=== PATIENT | female | born 1995 | race African-American/Black ===

== ENCOUNTER 2023-05-24 11:52 | Emergency (ER) | payer MEDICAID ==
[~2023-05-24] VITALS: Ht 172.7 cm; Wt 104.0 kg
[2023-05-24 11:58] VITALS: O2SAT 100
[2023-05-24] MEDS: IBUPROFEN 600MG TABLET PO ONE (12:50)
[2023-05-24] MEDS ORDERED: IBUP-2029 MT (12:58)
[2023-05-24 13:37] VITALS: BP 140/99; PULSE 78; RESP 20; TEMP 98.1
== END 2023-05-24 13:40 | disposition home or self-care (01) ==
LOC: ER 12:30
DX: S93.491A Sprain of other ligament of right ankle, initial encounter (principal); X58.XXXA Exposure to other specified factors, initial encounter; Y93.89 Activity, other specified; Y92.89 Other specified places as the place of occurrence of the external cause; Y99.8 Other external cause status
CPT/HCPCS: 81025; 73610; 73630; 99284; Z7610